=== PATIENT | female | born 1985 | race Caucasian/White ===

== ENCOUNTER 2017-09-24 15:54 | Emergency (ER) | payer OTHER | END 2017-09-24 16:41 | disposition home or self-care (01) | LOC: ER 15:54 | DX: M77.51 Other enthesopathy of right foot and ankle (principal); X50.9XXA Other and unspecified overexertion or strenuous movements or postures, initial encounter; Y99.0 Civilian activity done for income or pay; Y99.8 Other external cause status; Y92.69 Other specified industrial and construction area as the place of occurrence of the external cause | CPT/HCPCS: 99283 ==

== ENCOUNTER 2019-04-26 19:47 | Emergency (ER) | payer BC, OTHER ==
[~2019-04-26] VITALS: Ht 172.7 cm; Wt 59.0 kg
[~2019-04-26 19:47] MED LIST: PRED-220 PO
--- NOTE | 2019-04-26 20:10 | PHYS DOC ---
Past Medical History Past Medical History: No Pertinent History (NICHELLE GARCIA APRN) Past Surgical History: No Surgical History (NICHELLE GARCIA APRN) Alcohol Use: None Drug Use: None (NICHELLE GARCIA APRN) Adult General Chief Complaint Chief Complaint: PAIN ON URINATION HPI HPI Patient is a 33 year old female that presents with dysuria and urinary frequency has been ongoing for 3 days. She denies any pain at this time. Denies any other complaints. (NICHELLE GARCIA APRN) Review of Systems Review of Systems Constitutional: Denies fever or chills [] Eyes: Denies change in visual acuity, redness, or eye pain [] HENT: Denies nasal congestion or sore throat [] Respiratory: Denies cough or shortness of breath [] Cardiovascular: No additional information not addressed in HPI [] GI: Denies abdominal pain, nausea, vomiting, bloody stools or diarrhea [] : Reports dysuria and frequency. Musculoskeletal: Denies back pain or joint pain [] Integument: Denies rash or skin lesions [] Neurologic: Denies headache, focal weakness or sensory changes [] Complete systems were reviewed and found to be within normal limits, except as documented in this note. (NICHELLE GARCIA APRN) Physical Exam Physical Exam Constitutional: Well developed, well nourished, no acute distress, non-toxic appearance. [] HENT: Normocephalic, atraumatic, bilateral external ears normal, oropharynx moist, no oral exudates, nose normal. [] Eyes: PERRLA, EOMI, conjunctiva normal, no discharge. [] Neck: Normal range of motion, no tenderness, supple, no stridor. [] Skin: Warm, dry, no erythema, no rash. [] Back: No tenderness, no CVA tenderness. [] Extremities: No tenderness, no cyanosis, no clubbing, ROM intact, no edema. [] Neurologic: Alert and oriented X 3, normal motor function, normal sensory function, no focal deficits noted. [] Psychologic: Affect normal, judgement normal, mood normal. [] (NICHELLE GARCIA APRN) Current Patient Data Vital Signs Vital Signs Date Time Temp Pulse Resp B/P (MAP) Pulse Ox O2 Delivery O2 Flow Rate FiO2 04/26/19 20:13 99.0 91 17 122/67 (85) 98 Room Air 99.0 (NICHELLE MANDUJANO DO) Lab Values Laboratory Tests Test 04/26/19 20:00 04/26/19 20:08 Urine Collection Type Unknown Urine Color Yellow Urine Clarity Cloudy Urine pH 6.0 Urine Specific [place] 1.025 Urine Protein Negative mg/dL (NEG-TRACE) Urine Glucose (UA) Negative mg/dL (NEG) Urine Ketones (Stick) Negative mg/dL (NEG) Urine Blood Trace (NEG) Urine Nitrite Negative (NEG) Urine Bilirubin Negative (NEG) Urine Urobilinogen Dipstick 0.2 mg/dL (0.2 mg/dL) Urine Leukocyte Esterase Large (NEG) Urine RBC 0 /HPF (0-2) Urine WBC Tntc /HPF (0-4) Urine Squamous Epithelial Cells Mod /LPF Urine Bacteria Few /HPF (0-FEW) Urine Mucus Mod /LPF POC Urine HCG, Qualitative Hcg negative (Negative) (NICHELLE MANDUJANO DO) Lab Values Laboratory Tests Test 04/26/19 20:00 04/26/19 20:08 Urine Collection Type Unknown Urine Color Yellow Urine Clarity Cloudy Urine pH 6.0 Urine Specific [place] 1.025 Urine Protein Negative mg/dL (NEG-TRACE) Urine Glucose (UA) Negative mg/dL (NEG) Urine Ketones (Stick) Negative mg/dL (NEG) Urine Blood Trace (NEG) Urine Nitrite Negative (NEG) Urine Bilirubin Negative (NEG) Urine Urobilinogen Dipstick 0.2 mg/dL (0.2 mg/dL) Urine Leukocyte Esterase Large (NEG) Urine RBC 0 /HPF (0-2) Urine WBC Tntc /HPF (0-4) Urine Squamous Epithelial Cells Mod /LPF Urine Bacteria Few /HPF (0-FEW) Urine Mucus Mod /LPF POC Urine HCG, Qualitative Hcg negative (Negative) (NICHELLE GARCIA APRN) EKG EKG [] (NICHELLE GARCIA APRN) Radiology/Procedures Radiology/Procedures [] (NICHELLE GARCIA APRN) Course & Med Decision Making Course & Med Decision Making Pertinent Labs and Imaging studies reviewed. (See chart for details) Will get UA, Urine Preg. UA shows leukocytes, trace blood, and bacteria. Will treat for UTI with Keflex. (NICHELLE GARCIA APRN) Dragon Disclaimer Dragon Disclaimer This electronic medical record was generated, in whole or in part, using a voice recognition dictation system. (NICHELLE GARCIA APRN) Departure Departure Impression: Primary Impression: Urinary tract infection Disposition: HOME, SELF-CARE Condition: STABLE Referrals: NO PCP (PCP) Patient Instructions: Urinary Tract Infection Additional Instructions: Thank you for visiting [facility]. We appreciate you trusting us with your care. If any additional problems come up don't hesitate to return to visit us. Please follow up with your primary care provider so they can plan additional care if needed and know about the problem that you had. If symptoms worsen come back to the Emergency Department. Any concerning symptoms that start such as chest pain, shortness of air, weakness or numbness on one side of the body, running high fevers or any other concerning symptoms return to the ER. You have been prescribed an antibiotic today to help fight your infection. Please take all of the antibiotic as directed. If after 48 hours the infection is not improving, please return for more care. If the infection worsens, return to ER for additional care. Scripts Cephalexin (KEFLEX) 500 Mg Capsule 1 CAP PO BID for 7 Days, #14 CAP 0 Refills Prov: NICHELLE GARCIA APRN 04/26/19 Attending Signature Attending Signature I have reviewed the PA/PARTS SPECIALIST's note and plan of care. I was available for consultat ion as needed during the patient's visit in the emergency department. I agree with the clinical impression, plan, and disposition. (NICHELLE MANDUJANO DO) Problem Qualifiers Primary Impression: Urinary tract infection Urinary tract infection type: acute cystitis Hematuria presence: with hematuria Qualified Codes: N30.01 - Acute cystitis with hematuria NICHELLE GARCIA APRN Apr 26, 2019 20:10 NICHELLE MANDUJANO DO Apr 27, 2019 00:22
[2019-04-26 20:13] VITALS: BP 122/67
[2019-04-26 20:14] LABS: BILIRUBIN,URINE NEGATIVE (NEG); CLARITY,URINE CLOUDY; COLOR,URINE YELLOW; NITRITE,URINE NEGATIVE (NEG); PROTEIN,URINE NEGATIVE (NEG-TRACE); UROBILINOGEN,URINE 0.2 mg/dL (0.2 mg/dL)
[2019-04-26 20:18] LABS: RBC,URINE 0 /HPF (0-2); SQUAMOUS EPITHELIAL CELL,UR MOD /LPF; WBC,URINE TNTC /HPF (0-4)
[2019-04-26 20:19] LABS: BACTERIA,URINE FEW /HPF (0-FEW)
[2019-04-26] MEDS ORDERED: CEPH-264 PO (20:28)
== END 2019-04-26 20:53 | disposition home or self-care (01) ==
LOC: ER 19:47
DX: N30.01 Acute cystitis with hematuria (principal)
CPT/HCPCS: 81001; 81025; 87086; 87186; 99284

== ENCOUNTER 2019-08-21 14:13 | Emergency (ER) | payer BC ==
[~2019-08-21] VITALS: Ht 172.7 cm; Wt 58.4 kg
[~2019-08-21 14:13] MED LIST changes: +CEPH-264 PO
[2019-08-21 14:24] VITALS: BP 135/72
[2019-08-21] MEDS ORDERED: DIPHTH,PERTUSS(ACELL),TET TOX 0.5 ML DISP.SYRIN. VAX IM ONE (15:00)
[2019-08-21] MEDS ORDERED: SULF1TAB23 PO (15:03)
--- NOTE | 2019-08-21 15:04 | PHYS DOC ---
Past Medical History Past Medical History: No Pertinent History Past Surgical History: No Surgical History Smoking Status: Never Smoker Alcohol Use: None Drug Use: None Adult General Chief Complaint Chief Complaint: ABSCESS HPI HPI Patient is a 33 year old female who presents to the ED today complaining of an abscess on the right cheek that began 2 days ago. Patient denies any fever. Reports attempting to drain the area with no relief. Review of Systems Review of Systems Constitutional: Denies fever or chills [] Musculoskeletal: Denies back pain or joint pain [] Integument: Reports abscess to the right cheek Neurologic: Denies headache, focal weakness or sensory changes [] All other systems were reviewed and found to be within normal limits, except as documented in this note. Current Medications Current Medications Current Medications Medications (Trade) Dose Ordered Sig/Remberto Start Time Stop Time Status Last Admin Dose Admin Diphtheria/ Tetanus/Acell Pertussis (Boostrix) 0.5 ml ONCE ONCE 08/21/19 15:00 08/21/19 15:01 UNV Allergies Allergies Allergies Coded Allergies Type Severity Reaction Last Updated Verified No Known Drug Allergies 08/21/19 No Physical Exam Physical Exam Constitutional: Well developed, well nourished, no acute distress, non-toxic appearance. [] Skin: Right exterior cheek with an indurated area approximately 2 x 2 centimeters with cellulitis, the area is firm tender to touch with a scab patient reports attempting to open the area herself unsuccessfully. Back: No tenderness, no CVA tenderness. [] Extremities: No tenderness, no cyanosis, no clubbing, ROM intact, no edema. [] Neurologic: Alert and oriented X 3, normal motor function, normal sensory function, no focal deficits noted. [] Psychologic: Affect normal, judgement normal, mood normal. [] Current Patient Data Vital Signs Vital Signs Date Time Temp Pulse Resp B/P (MAP) Pulse Ox O2 Delivery O2 Flow Rate FiO2 08/21/19 14:24 98.4 79 18 135/72 (93) 100 Room Air 98.4 EKG EKG [] Radiology/Procedures Radiology/Procedures [] Course & Med Decision Making Course & Med Decision Making Pertinent Labs and Imaging studies reviewed. (See chart for details) This is a 33-year-old female patient with an abscess on the right cheek, there is no fluctuance to this abscess, there is nothing to drain. Discharged on Bactrim. Tetanus updated. Follow-up with PCP in 1-2 weeks. Iker Disclaimer Iker Disclaimer This electronic medical record was generated, in whole or in part, using a voice recognition dictation system. Departure Departure Impression: Primary Impression: Abscess or cellulitis of cheek Disposition: HOME, SELF-CARE Condition: STABLE Referrals: NO PCP (PCP) follow up with your doctor in 1-2 weeks Patient Instructions: Abscess Additional Instructions: You have an abscess to the right cheek that is not ready to be drained, keep the area clean and dry. Apply warm compresses to the area twice a day. Monitor the area for any worsening condition and return to the ED. Follow-up with your own primary care doctor in 1-2 weeks. Scripts Sulfamethoxazole/Trimethoprim (BACTRIM 400-80 MG TABLET) 1 Each Tablet 1 TAB PO BID for 10 Days, #20 TAB 0 Refills Prov: LIZY GANN APRN 08/21/19 LIYZ GANN APRN Aug 21, 2019 15:04
== END 2019-08-21 15:20 | disposition home or self-care (01) ==
LOC: ER 14:13
DX: L02.01 Cutaneous abscess of face (principal)
CPT/HCPCS: 90471; 90715; 99283